=== PATIENT | female | born 1945 | race Hispanic/Latino ===

== ENCOUNTER → 2017-06-12 | Outpatient (CLI) | payer OTHER, MEDICARE ==
[~2017-06-12] MED LIST: AMLODIPINE BESY10 MG PO; AMLODIPINE BESYL5 MG PO; CELEBREX200 MG PO; CLONAZEPAM1 MG PO; ELMIRON100 MG PO; GLIPIZIDE5 MG PO; LYRICA150 MG PO; MACROBID 100 M100 MG PO; OXYCODONE-ACET1 EAC3 PO; PROMETHAZINE HC25 M1 PO; SERTRALINE HCL100 MG PO; SIMVASTATIN20 MG PO; VESICARE PO; [UNRECOGNIZED DRUG - REMARK]
[2017-06-12 14:46] LABS: BASOPHILS % 0.3 % (0.0-1.0); EOSINOPHILS # (AUTO) 0.1 (0.0-0.4); EOSINOPHILS % 2.8 % (0.0-6.0); HEMOGLOBIN 10.6 g/dL (12.0-16.0); LYMPHOCYTES % 31.3 % (18.0-39.1); MEAN CORPUSCULAR HEMOGLOBIN 36.9 pg (28-32); MEAN CORPUSCULAR HGB CONC 36.6 g/dL (31-35); MONOCYTES # (AUTO) 0.3 (0.2-0.8); MONOCYTES % 9.4 % (4.4-11.3); NEUTROPHILS # (AUTO) 1.8 (2.1-6.9); NEUTROPHILS % 55.6 % (38.7-80.0); PLATELET COUNT 115 x10e3/uL (140-360); RED BLOOD COUNT 2.87 x10e6/uL (3.6-5.1); RED CELL DISTRIBUTION WIDTH 14.8 % (11.7-14.4)
[2017-06-12 14:51] LABS: INR 0.93; PROTHROMBIN TIME 11.7 seconds (11.9-14.5)
[2017-06-12 14:56] LABS: PARTIAL THROMBOPLASTIN TIME 20.1 seconds (23.8-35.5)
[2017-06-12 14:58] LABS: ALBUMIN 3.8 g/dL (3.5-5.0); ALBUMIN/GLOBULIN RATIO 0.8 (0.8-2.0); ANION GAP 12.2 mmol/L (8-16); CALCIUM 9.1 mg/dL (8.4-10.2); CREATININE, SERUM 1.29 mg/dL (0.57-1.11); POTASSIUM 4.2 mmol/L (3.5-5.1)
--- NOTE | 2017-06-12 15:06 | Diagnostic Imaging Report ---
PROCEDURE: Frontal and lateral views of the chest. COMPARISON: [facility], DX, CHEST XRAY LINE PLACEMENT, 11/15/2016, 23:36. INDICATIONS: PRE OP UROLIFT FINDINGS: Exam limited by soft tissue attenuation from body habitus. Lines/tubes: None. Lungs: Lungs are well-inflated. No definite consolidation or pulmonary edema. Pleura: There is no pleural effusion or pneumothorax. Heart and mediastinum: Stable enlargement of the cardiac silhouette, with central pulmonary venous congestion and mild perihilar interstitial edema. Bones: No acute bone abnormality. Stable chronic right humeral neck fracture deformity with marked bilateral glenohumeral degenerative changes. IMPRESSION: 1. stable enlargement of the cardiac silhouette with stable central pulmonary venous congestion and mild perihilar interstitial edema. No consolidation or effusion. Everardo Billingsley M.D. Dictated by: Everardo Billingsley M.D. on 06/12/2017 at 15:06 Electronically approved by: Everardo Billingsley M.D. on 06/12/2017 at 15:06
--- OUTSIDE RECORDS SUMMARY | 2017-06-13 08:14 | XMS REPORT | Clinical Summary ---
Author Author [facility] [employer] Organization [facility] Address Unknown Phone Unavailable Care Team Providers Care Marketing Rotation Associate Name Role Phone Nii Hernandez MD PCP Allergies Active Allergy Reactions Severity Noted Date Comments Tetracycline Itching 05/02/2017 Current Medications Prescription Sig. Disp. Refills Start End Date Status Date oxyCODone-acetaminophen Take 1 tablet by mouth Active (PERCOCET) 10-325 mg per every 8 (eight) hours as tablet needed for moderate pain. pregabalin (LYRICA) 150 Take 150 mg by mouth 2 Active MG capsule (two) times a day. promethazine (PHENERGAN) Take 25 mg by mouth every Active 25 MG tablet 6 (six) hours as needed for nausea or vomiting. pentosan polysulfate Take 100 mg by mouth 2 Active (ELMIRON) 100 mg capsule (two) times a day. celecoxib (CeleBREX) 200 Take 200 mg by mouth 2 Active MG capsule (two) times a day. simvastatin (ZOCOR) 20 MG Take 20 mg by mouth Active tablet nightly. amLODIPine (NORVASC) 10 Take 10 mg by mouth Active mg tablet daily. omeprazole (PriLOSEC) 20 Take 20 mg by mouth Active MG capsule daily. glipiZIDE (GLUCOTROL) 5 Take 5 mg by mouth 2 Active MG tablet (two) times a day before meals. clonAZEPAM (KlonoPIN) 1 Take 1 mg by mouth Active MG tablet nightly. sertraline (ZOLOFT) 100 Take 200 mg by mouth Active MG tablet daily. sodium chloride 0.9 % by intrathecal route Active parenteral solution continuously. DILAUDID AND BUPIVACAINE ipratropium-albuterol Inhale 2 puffs 4 (four) Active (COMBIVENT RESPIMAT) times a day. 20-100 mcg/actuation mist inhaler Active Problems Not on file Encounters Date Type Specialty Care Team Description 05/02/2017 [facility] Radiology Osmany Souza APRN Encounter 05/02/2017 Pre-Admit Pre-Admission Testing Jordan Colindres MD Preop testing (Primary Testing Dx) Appointment after 06/12/2016 Social History Tobacco Use Types Packs/Day Years Used Date Former Smoker Cigarettes 1 40 Quit: 2011 Smokeless Tobacco: Never Used Alcohol Use Drinks/Week oz/Week Comments Yes 1 Standard 0.6 drinks or equivalent Sex Assigned at Date Recorded Not on file Last Filed Vital Signs Vital Sign Reading Time Taken Blood Pressure 136/62 05/02/2017 3:34 PM MASTER ESTHETICIAN Pulse 55 05/02/2017 3:34 PM MASTER ESTHETICIAN Temperature 36.6 C (97.9 F) 05/02/2017 3:34 PM MASTER ESTHETICIAN Respiratory Rate 18 05/02/2017 3:34 PM MASTER ESTHETICIAN Oxygen Saturation 93% 05/02/2017 3:34 PM MASTER ESTHETICIAN Inhaled Oxygen - - Concentration Weight 81.6 kg (180 lb) 05/02/2017 3:34 PM MASTER ESTHETICIAN Height 154.9 cm (5' 1") 05/02/2017 3:34 PM MASTER ESTHETICIAN Body Mass Index 34.01 05/02/2017 3:34 PM MASTER ESTHETICIAN Plan of Treatment Date Type Specialty Care Team Description 05/02/2017 Anesthesia Orthopedic Surgery Osmany Souza APRN Event [address] [facility] [address] [place] [address] 07/16/2017 Surgery Orthopedic Surgery Jordan Colindres MD REVISION, PLACEMENT, PAIN [address] [place] [address] [phone] 07/16/2017 Procedure Pass Orthopedic Surgery 07/16/2017 [facility] Orthopedic Surgery Jordan Colindres MD Encounter [address] [place] [address] [phone] Health Maintenance Due Date Last Done Comments COLONOSCOPY 1996 MAMMOGRAM 1996 ZOSTER VACCINE 2006 PNEUMOCOCCAL 12/07/2011 POLYSACCHARIDE VACCINE AGE 65 AND OVER PNEUMOCOCCAL-13 12/07/2011 INFLUENZA VACCINE 11/05/2016 Results * XR Chest 2 Vw (05/02/2017 4:06 PM) Specimen Performing Laboratory [facility] [address] [place] [address] Narrative EXAMINATION:XR CHEST 2 VW CLINICAL HISTORY:Z01.818 Encounter for other preprocedural examination, COPD Emphysema, pre-op XR CHEST 2 VWimages are submitted COMPARISON:Chest x-rays dated September 13, 2015 FINDINGS: Lines/tubes:None. Heart and mediastinum:Atherosclerotic calcifications of the thoracic aorta. Cardiac silhouette is otherwise unremarkable. Lungs:The lungs are well inflated and clear. There is no evidence of pneumonia or pulmonary edema. Pleura:There is no pleural effusion or pneumothorax. Bones:Severe osteoarthritis of bilateral glenohumeral joints. IMPRESSION: Negative for acute cardiopulmonary disease. [id number] Procedure Note Hm Interface, Radiology Results Incoming - 05/02/2017 4:11 PM MASTER ESTHETICIAN EXAMINATION: XR CHEST 2 VW CLINICAL HISTORY: Z01.818 Encounter for other preprocedural examination, COPD Emphysema, pre-op XR CHEST 2 VW images are submitted COMPARISON: Chest x-rays dated September 13, 2015 FINDINGS: Lines/tubes: None. Heart and mediastinum: Atherosclerotic calcifications of the thoracic aorta. Cardiac silhouette is otherwise unremarkable. Lungs: The lungs are well inflated and clear. There is no evidence of pneumonia or pulmonary edema. Pleura: There is no pleural effusion or pneumothorax. Bones: Severe osteoarthritis of bilateral glenohumeral joints. IMPRESSION: Negative for acute cardiopulmonary disease. [id number] * ECG Pre/Post Op (05/02/2017 3:15 PM) Component Value Ref Range Ventricular rate 57 Atrial rate 57 ME interval 238 QRSD interval 108 QT interval 464 QTC interval 451 P axis 1 61 QRS axis 1 32 T wave axis 60 EKG impression Sinus bradycardia with 1st degree AV block-Otherwise normal ECG-In automated comparison with ECG of 18-MAY-2016 04:42,-No significant change was found- Specimen Performing Laboratory [facility] [address] [place] [address] * Urinalysis screen and microscopy, with reflex to culture (05/02/2017 3:03 PM) Component Value Ref Range Specimen site Clean catch Color, UA Straw Appearance, UA Clear Specific gravity, UA 1.008 1.001 - 1.035 pH, UA 7.0 5.0 - 8.5 Protein, UA Negative Negative Glucose, UA Negative Negative Ketones, UA Negative Negative Bilirubin, UA Negative Negative Blood, UA Negative Negative Nitrite, UA Negative Negative Urobilinogen, UA <2.0 <2.0 Leukocyte esterase, UA Negative Negative Epithelial cells, UA <1 /HPF WBC, UA <1 0 - 4 /HPF RBC, UA <1 0 - 2 /HPF Bacteria, UA Few None seen Yeast, UA None seen Yeast with pseudohyphae, None seen UA Specimen Performing Laboratory Urine [facility] DEPARTMENT OF PATHOLOGY AND GENOMIC MEDICINE [address] [place] [id number] * Estimated GFR (05/02/2017 3:03 PM) Component Value Ref Range GFR Non Af Amer 49 (A) mL/min/1.73 m2 GFR Af Amer 59 (A) mL/min/1.73 m2 Comment: Chronic kidney disease: <60 mL/min/1.73m2 Kidney failure: <15 mL/min/1.73m2 The estimated GFR is calculated from the IDMS-traceable Modification of Diet in Renal Disease Equation. The accuracy of the calculation is poor when the creatinine is normal. Calculated values >90 mL/min/1.73m2 are not reported. This equation has not been validated in children (<18 years), women, the elderly (>70 years), or ethnic groups other than Caucasians and Americans. Specimen Performing Laboratory Plasma specimen [facility] OF PATHOLOGY [facility] GENOM[facility]IC[facility] [address] [place] [id number] * CBC with platelet and differential (05/02/2017 3:03 PM) Component Value Ref Range WBC 3.70 (L) 4.50 - 11.00 k/uL RBC 3.34 (L) 4.20 - 5.50 m/uL HGB 11.5 (L) 12.0 - 16.0 g/dL HCT 32.9 (L) 37.0 - 47.0 % MCV 98.5 82.0 - 100.0 fL MCH 34.4 (H) 27.0 - 34.0 pg MCHC 35.0 31.0 - 37.0 g/dL RDW - SD 43.6 37.0 - 55.0 fL MPV 10.8 8.8 - 13.2 fL Platelet count 119 (L) 150 - 400 k/uL Nucleated RBC 0.00 /100 WBC Neutrophils 59.0 39.0 - 69.0 % Lymphocytes 31.9 25.0 - 45.0 % Monocytes 6.2 0.0 - 10.0 % Eosinophils 1.9 0.0 - 5.0 % Basophils 0.5 0.0 - 1.0 % Immature granulocytes 0.5Comment: "Immature granulocytes" 0.0 - 1.0 % (promyelocytes, myelocytes, metamyelocytes) Specimen Performing Laboratory Blood [facility] DEPART[facility] OF PATHOLOGY AND GENOMIC [facility]IC[facility] [address] [place] [address] * Urine culture (05/02/2017 3:03 PM) Component Value Ref Range Urine culture SEE COMMENTComment: Bacteriuria screen negative. Specimen Performing Laboratory Urine [facility] DEPARTMENT OF PATHOLOGY AND [address] [address] * Hemoglobin A1c (05/02/2017 3:03 PM) Component Value Ref Range Hemoglobin A1C 5.4 4.0 - 5.6 % Comment: HbA1c cutoffs for diagnosing diabetes: 4.0% - 5.6%=normal 5.7% - 6.4%=increased risk for diabetes (prediabetes) >=6.5%=diabetes Goals for glycemic control (ADA 2016) < 7.0% Target for non adults with diabetes. More or less stringent targets may be appropriate for individual patients. <7.5% Target for Children and adolescents with type 1 diabetes. Specimen Performing Laboratory Blood [facility] OF PATHOLOGY AND GENOMIC MEDICINE [address] [place] [address] * Comprehensive metabolic panel (05/02/2017 3:03 PM) Component Value Ref Range Sodium 141 135 - 148 mEq/L Potassium 4.2 3.5 - 5.0 mEq/L Chloride 94 (L) 98 - 112 mEq/L CO2 35 (H) 24 - 31 mEq/L Anion gap 12 7 - 15 mEq/L Comment: Starting from July , anion gap calculation no longer incorporates potassium. Please note the change. BUN 24 (H) 8 - 23 mg/dL Creatinine 1.1 (H) 0.5 - 0.9 mg/dL Glucose 91 65 - 99 mg/dL Calcium 9.9 8.8 - 10.2 mg/dL Protein 9.1 (H) 6.3 - 8.3 g/dL Comment: [place] 4.6-7.0 g/dL 1 week 4.4-7.6 g/dL 7 months-1year 5.1-7.3 g/dL 1-2 years 5.6-7.5 g/dL >3 years 6.0-8.0 g/dL 18-150 6.3-8.3 g/dL Albumin 4.0 3.5 - 5.0 g/dL A/G ratio 0.8 0.7 - 3.8 Alkaline phosphatase 128 (H) 35 - 104 U/L AST 30 10 - 35 U/L ALT 31 5 - 50 U/L Total bilirubin 0.3 0.0 - 1.2 mg/dL Specimen Performing Laboratory Plasma specimen [facility] OF PATHOLOGY AND GENOM[facility] MEDICINE [address] [place] [address] after 06/12/2016 Insurance Payer Benefit Subscriber ID Type Phone Address Plan / Group YAAKOV NUNO OPEN xxxxxxxxxxx O ACCESS/NET WORK MEDICARE MEDICARE xxxxxxxxxx Medicare [place], [place] [address]
--- OUTSIDE RECORDS SUMMARY | 2017-06-13 08:14 | XMS REPORT ---
Author Author [facility] Address Unknown Phone Unavailable Care Team Providers Care Poultry Veterinarian Name Role Phone CANDACE BARRON Unavailable Unavailable Problems This patient has no known problems. Allergies, Adverse Reactions, Alerts This patient has no known allergies or adverse reactions. Medications This patient has no known medications. Results Test Description Test Time Test Comments Text Results Atomic Results Result Comments CHEST 2 VIEWS [place] [address] Patient Name: SHAN CORONEL MR #: [id number] : 1945 Age/Sex: 71/F Req # : [id number] Adm Physician: Ordered by: CANDACE BARRON MD Report #: [id number] Location: OR Room/Bed: Procedure: [id number] DX/CHEST 2 VIEWS Exam Date: 06/12/17 Exam Time: 1440 REPORT STATUS: Signed PROCEDURE: Frontal and lateral views of the chest. COMPARISON: [facility], DX, CHEST XRAY LINE PLACEMENT, 11/15/2016, 23:36. INDICATIONS: PRE OP UROLIFT FINDINGS: Exam limited by soft tissue attenuation from body habitus. Lines/ tubes: None. Lungs: Lungs are well-inflated. No definite consolidation or pulmonary edema. Pleura: There is no pleural effusion or pneumothorax. Heart and mediastinum: Stable enlargement of the cardiac silhouette, with central pulmonary venous congestion and mild perihilar interstitial edema. Bones: No acute bone abnormality. Stable chronic right humeral neck fracture deformity with marked bilateral glenohumeral degenerative changes. IMPRESSION: 1. stable enlargement of the cardiac silhouette with stable central pulmonary venous congestion and mild perihilar interstitial edema. No consolidation or effusion. Gunnar Billingsley M.D. Dictated by: Gunnar Billingsley M.D. on 06/12/2017 at 15:06 Electronically approved by: Gunnar Billingsley M.D. on 2017 at 15:06 Dictated By: GUNNAR BILLINGSLEY MD 1506 Transcribed By: LAURENT on 1506 COPY TO: CANDACE BARRON MD
== END | disposition home or self-care (01) ==
LOC: RAD 05:00 → OR 06-13 08:12 → EDSTATUS 06-13 09:30
PROVIDERS: ATTEND Urology
DX: N30.11 Interstitial cystitis (chronic) with hematuria (principal); N35.021 Urethral stricture due to childbirth; N30.20 Other chronic cystitis without hematuria; N39.41 Urge incontinence; N95.2 Postmenopausal atrophic vaginitis; M54.89 Other dorsalgia; E11.9 Type 2 diabetes mellitus without complications; M12.9 Arthropathy, unspecified; F34.1 Dysthymic disorder; J43.9 Emphysema, unspecified; I10 Essential (primary) hypertension; K21.9 Gastro-esophageal reflux disease without esophagitis; E66.9 Obesity, unspecified; G89.29 Other chronic pain; J45.998 Other asthma; M51.36 Other intervertebral disc degeneration, lumbar region; I83.893 Varicose veins of bilateral lower extremities with other complications; Z01.810 Encounter for preprocedural cardiovascular examination; Z01.812 Encounter for preprocedural laboratory examination; Z01.818 Encounter for other preprocedural examination; Z53.09 Procedure and treatment not carried out because of other contraindication; Z68.43 Body mass index [BMI] 50.0-59.9, adult; Z87.891 Personal history of nicotine dependence
CPT/HCPCS: 36415; 71046; 80053; 85025; 85610; 85730; 93005

== ENCOUNTER → 2017-06-27 | Day surgery (SDC) | payer OTHER, MEDICARE ==
[~2017-06-27] MED LIST changes: +BOTULINUM TOXIN TYPE A 100 UNIT VIAL IM ONE; +CEFOXITIN SOD 1 GM VIAL ONE; +CEFTRIAXONE SOD 1 GM VIAL ONE; +DEXAMETHASONE SOD PHOS INJ 4 MG/ML VIAL ONE; +ETOMIDATE 2 MG/ML 10 ML INJ IV ONE; +IOPAMIDOL 610MG/1ML 300 MG/ML VIAL IV ONE; +LIDOCAINE HCL 2% LOCAL INJ 5 ML SDV VIAL INJ ONE; +ONDANSETRON HCL INJ 2 MG/ML VIAL ONE; +PROPOFOL IV EMULSION 10 MG/ML 20 ML VIAL ONE; +SEVOFLURANE INHAL SOLN 250 ML PEN BTL ONE
--- OUTSIDE RECORDS SUMMARY | 2017-06-27 08:35 | XMS REPORT | Clinical Summary ---
Author Author [facility] [employer] Organization [facility] Address Unknown Phone Unavailable Care Team Providers Care Clinical Trial Data Manager Name Role Phone Nii Hernandez MD PCP [...] Date Type Specialty Care Team Description 05/02/2017 [facility] Radiology Osmany Souza APRN Encounter 05/02/2017 Pre-Admit Pre-Admission Testing Jrodan Colindres MD Preop testing (Primary Testing Dx) Appointment after 06/26/2016 Social History Tobacco Use Types Packs/Day Years Used Date Former Smoker Cigarettes 1 40 Quit: 2011 Smokeless Tobacco: Never Used Alcohol Use Drinks/Week oz/Week Comments Yes 1 Standard 0.6 drinks or equivalent Sex Assigned at Date Recorded Not on file Last Filed Vital Signs Vital Sign Reading Time Taken Blood Pressure 136/62 05/02/2017 3:34 PM TARIFF SUPERVISOR Pulse 55 05/02/2017 3:34 PM TARIFF SUPERVISOR Temperature 36.6 C (97.9 F) 05/02/2017 3:34 PM TARIFF SUPERVISOR Respiratory Rate 18 05/02/2017 3:34 PM TARIFF SUPERVISOR Oxygen Saturation 93% 05/02/2017 3:34 PM TARIFF SUPERVISOR Inhaled Oxygen - - Concentration Weight 81.6 kg (180 lb) 05/02/2017 3:34 PM TARIFF SUPERVISOR Height 154.9 cm (5' 1") 05/02/2017 3:34 PM TARIFF SUPERVISOR Body Mass Index 34.01 05/02/2017 3:34 PM TARIFF SUPERVISOR Plan of Treatment Date Type Specialty Care Team Description 05/02/2017 Anesthesia Orthopedic Surgery Osmany Souza APRN Event [address] [facility] [address]- [place] [address] 07/16/2017 Surgery Orthopedic Surgery Jordan Colindres MD REVISION, PLACEMENT, PAIN [address] [place] [address] [phone] 07/16/2017 Procedure Pass Orthopedic Surgery 07/16/2017 [facility] Orthopedic Surgery Jordan Colindres MD Encounter [address] [place] [address] [phone] Health Maintenance Due Date Last Done Comments COLONOSCOPY 1996 MAMMOGRAM 1996 ZOSTER VACCINE 2006 PNEUMOCOCCAL 12/07/2011 POLYSACCHARIDE VACCINE AGE 65 AND OVER PNEUMOCOCCAL-13 12/07/2011 INFLUENZA VACCINE 11/05/2016 Results * XR Chest 2 Vw (05/02/2017 4:06 PM) Specimen Performing Laboratory [facility] [address] [place] [address] Narrative EXAMINATION:XR CHEST 2 VW CLINICAL HISTORY:Z01.818 [...] joints. IMPRESSION: Negative for acute cardiopulmonary disease. [id number] Procedure Note Hm Interface, Radiology Results Incoming - 05/02/2017 4:11 PM TARIFF SUPERVISOR EXAMINATION: XR CHEST 2 VW CLINICAL HISTORY: [...] joints. IMPRESSION: Negative for acute cardiopulmonary disease. [id number] * ECG Pre/Post Op (05/02/2017 3:15 PM) Component Value Ref Range Ventricular rate 57 Atrial rate 57 [place] interval 238 QRSD interval 108 QT interval 464 QTC interval 451 P axis 1 61 QRS axis 1 32 T wave axis 60 EKG impression Sinus bradycardia with 1st degree AV block-Otherwise normal ECG-In automated comparison with ECG of 18-MAY-2016 04:42,-No significant change was found- Specimen Performing Laboratory [facility] [address] [place] [address] * Urinalysis screen and microscopy, with reflex [...] None seen UA Specimen Performing Laboratory Urine [facility] DEPARTMENT OF PATHOLOGY AND GENOMIC MEDICINE [address] [place] [address] * Estimated GFR (05/02/2017 3:03 PM) Component [...] and Americans. Specimen Performing Laboratory Plasma specimen [facility] DEPARTMENT OF PATHOLOGY AND GENOMIC MEDICINE [address] [place] [phone] * CBC with platelet and differential (05/02/2017 [...] (promyelocytes, myelocytes, metamyelocytes) Specimen Performing Laboratory Blood [facility] DEPARTMENT OF PATHOLOGY AND GENOMIC MEDICINE [address] [place] [address] * Urine culture (05/02/2017 3:03 PM) Component Value Ref Range Urine culture SEE COMMENTComment: Bacteriuria screen negative. Specimen Performing Laboratory Urine [facility] DEPARTMENT OF PATHOLOGY AND [address] [address] * Hemoglobin A1c (05/02/2017 3:03 PM) Component [...] type 1 diabetes. Specimen Performing Laboratory Blood [facility] OF PATHOLOGY AND GENOMIC MEDICINE [address] [place] [address] * Comprehensive metabolic panel (05/02/2017 3:03 PM) [...] 9.1 (H) 6.3 - 8.3 g/dL Comment: [place] 4.6-7.0 g/dL 1 week 4.4-7.6 g/dL 7 [...] 1.2 mg/dL Specimen Performing Laboratory Plasma specimen [facility] DEPARTMENT OF PATHOLOGY AND GENOMIC MEDICINE [address] [place] [address] after 06/26/2016 Insurance Payer Benefit Subscriber ID Type Phone Address Plan / Group YAAKOV NUNO OPEN xxxxxxxxxxx O ACCESS/NET WORK MEDICARE MEDICARE xxxxxxxxxx Medicare [place], [place] [address]
--- NOTE | 2017-06-27 12:23 | Operative Report ---
DATE OF PROCEDURE: June 27, 2017 PREOPERATIVE DIAGNOSIS: 1. Urinary urgency incontinence. 2. Urethral stricture. POSTOPERATIVE DIAGNOSIS: 1. Urinary urgency incontinence. 2. Urethral stricture. OPERATION PERFORMED: 1. Cystoscopy. 2. Urethral dilation. PRINCIPAL PROCEDURE: Injection of intravesical Botox 200 units. ANESTHESIA: General. INDICATIONS: This patient is a 71-year-old white female with a long history of urinary urgency incontinence. She has failed on anticholinergics and Myrbetriq. The patient had been tried on Botox 100 units, which gave her several months of relief but it wore off. The plan at this time is now to give her an injection of Botox 200 units. The patient also has a past history of urethral stenosis and urethral stricture and requires urethral dilation for getting the cystoscope in. The procedure was done in the following fashion. DESCRIPTION OF PROCEDURE: The patient was taken to the operating room, placed under general anesthesia, and dressed and draped with Hibiclens in the usual fashion. There was a moderate cystocele present. The urethral meatus initially would not accept the 22-Australian Olympus rigid cystoscope. Therefore, I dilated the urethra from 18-Australian to 30-Australian with female sounds. Once this was accomplished, I could then insert the 22-Australian Olympus cystoscope with the video camera attachment using the 30-degree oblique lens. Clear efflux was seen from both ureteral orifices. The bladder had some mild to moderate trabeculation. No bladder tumors or bladder stones were identified. I had previously mixed up 200 units of Botox into 30 mL of bacteriostatic sterile saline. I used a Coloplast needle for the injections. Thirty injections were made, taking care to avoid injury to the trigone, and these were scattered along the lateral ferrer and floor of the bladder. Once the 30 injections were made, the bladder was emptied and the cystoscope was withdrawn. The patient tolerated procedure well and left the operating room in good condition. My plan is to send her home on Macrobid 100 mg p.o. twice daily, number 20. She will have a return appointment to see me again in 2 weeks. Job#: [id number] EV
== END | disposition home or self-care (01) ==
LOC: OR 08:33
PROVIDERS: ATTEND Urology
DX: N39.41 Urge incontinence (principal); N35.021 Urethral stricture due to childbirth; N30.11 Interstitial cystitis (chronic) with hematuria; N30.20 Other chronic cystitis without hematuria; N32.89 Other specified disorders of bladder; E11.9 Type 2 diabetes mellitus without complications; M19.90 Unspecified osteoarthritis, unspecified site; G57.92 Unspecified mononeuropathy of left lower limb; G57.91 Unspecified mononeuropathy of right lower limb; J44.9 Chronic obstructive pulmonary disease, unspecified; I10 Essential (primary) hypertension; E78.5 Hyperlipidemia, unspecified; M54.89 Other dorsalgia; K21.9 Gastro-esophageal reflux disease without esophagitis; E66.9 Obesity, unspecified; G89.29 Other chronic pain; M51.36 Other intervertebral disc degeneration, lumbar region; I83.893 Varicose veins of bilateral lower extremities with other complications; F34.1 Dysthymic disorder; Z99.81 Dependence on supplemental oxygen; Z68.43 Body mass index [BMI] 50.0-59.9, adult; Z87.891 Personal history of nicotine dependence
CPT/HCPCS: 36415; 52281; 82948; J0587; J0694; J1100; J2001; J2405; J0696